=== PATIENT | female | born 1965 | race Caucasian/White ===

== ENCOUNTER → 2017-04-21 | Outpatient (CLI) | payer OTHER | LOC: FIMAGING 08:37 | PROVIDERS: ATTEND Obstetrics & Gynecology | DX: Z12.31 Encounter for screening mammogram for malignant neoplasm of breast (principal); Z80.3 Family history of malignant neoplasm of breast | CPT/HCPCS: G0202 ==

== ENCOUNTER → 2017-05-15 | Outpatient (CLI) | payer OTHER | LOC: FIMAGING 14:14 | PROVIDERS: ATTEND Obstetrics & Gynecology | DX: R92.8 Other abnormal and inconclusive findings on diagnostic imaging of breast (principal) | CPT/HCPCS: G0206 ==

== ENCOUNTER → 2017-06-30 | Outpatient (CLI) | payer OTHER | LOC: CIMAGING 15:56 | PROVIDERS: ATTEND Internal Medicine Endocrinology, Diabetes & Metabolism | DX: E04.2 Nontoxic multinodular goiter (principal) | CPT/HCPCS: 76536-PO ==

== ENCOUNTER → 2017-12-11 | Outpatient (CLI) | payer OTHER | LOC: FIMAGING 14:42 | PROVIDERS: ATTEND Obstetrics & Gynecology | DX: Z03.89 Encounter for observation for other suspected diseases and conditions ruled out (principal) ==

== ENCOUNTER 2018-04-21 16:25 | Emergency (ER) | payer OTHER ==
[2018-04-21 16:41] VITALS: BP 142/112
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
== END 2018-04-21 19:17 | disposition home or self-care (01) ==
DX: S16.1XXA Strain of muscle, fascia and tendon at neck level, initial encounter (principal); K12.0 Recurrent oral aphthae; V49.49XA Driver injured in collision with other motor vehicles in traffic accident, initial encounter; Y92.410 Unspecified street and highway as the place of occurrence of the external cause; Y99.8 Other external cause status; Y93.89 Activity, other specified

== ENCOUNTER 2018-09-15 07:15 | Observation (INO) | payer OTHER ==
--- NOTE | 2018-09-21 12:52 | PDHPUP ---
History & Physical Update H&P update statement: This history and physical update is based on an assessment of the patient which was completed after admission or registration (within 24 hours), but prior to the surgery/procedure. H&P update: H&P reviewed & patient examined
[2018-09-22] MEDS ORDERED: ceFAZolin 2 GM/DEXTROSE 100 ML IV ONE (09:37)
[2018-09-22] MEDS ORDERED: DEXAMETHASONE 4 MG/ML VIAL IVP ONE (09:37)
[2018-09-22] MEDS ORDERED: LIDOCAINE 1% 2 ML INJ ID PRN (09:38)
[2018-09-22] MEDS ORDERED: LR 1,000 ML IV ONE (09:38)
[2018-09-22] MEDS ORDERED: LIDO/EPI 2% **for epidural** 20 ML SDV ONE (10:08)
[2018-09-22] MEDS ORDERED: LIDO/EPI 1% **for epidural** 30 ML SDV ONE (10:09)
[2018-09-22] MEDS ORDERED: MIDAZOLAM 2 MG/2 ML VIAL IVP ONE (10:27)
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
[2018-09-22] MEDS ORDERED: PROPOFOL 200 MG/20 ML VIAL ONE (10:31)
[2018-09-22] MEDS ORDERED: LIDOCAINE 2% 5 ML SDV ONE (10:32)
[2018-09-22] MEDS ORDERED: ROCURONIUM 50 MG/5 ML VIAL ONE (10:32)
[2018-09-22] MEDS ORDERED: ONDANSETRON 4 MG/2 ML VIAL ONE (10:34)
[2018-09-22] MEDS ORDERED: DEXAMETHASONE 4 MG/ML VIAL ONE ×2 (10:35)
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
[2018-09-22] MEDS ORDERED: SCOPOLAMINE HYDROBROMIDE 1 MG/3 DAYS PATCH TD SCH (11:15)
[2018-09-22] MEDS ORDERED: SCOPOLAMINE HYDROBROMIDE 1 MG/3 DAYS PATCH TD ONE (11:15)
[2018-09-22] MEDS ORDERED: LIDOCAINE HCL 160 MG/4 ML LTA KIT TP ONE (11:26)
[2018-09-22] MEDS ORDERED: fentaNYL 100 MCG/2 ML INJ ONE ×2 (11:26→15:11)
[2018-09-22] MEDS ORDERED: PROPOFOL/EMULSION 500 MG/50 ML BOTTLE IV ONE ×3 (11:47→13:31)
[2018-09-22] MEDS ORDERED: HYDROmorphONE/DILAUDID 2 MG/ML INJ ONE (13:07)
[2018-09-22] MEDS ORDERED: ACETAMINOPHEN 160 MG/5 ML UDCUP PO PRN (14:13)
[2018-09-22] MEDS ORDERED: ONDANSETRON 4 MG/2 ML VIAL IVP PRN ×2 (14:13→14:25)
[2018-09-22] MEDS ORDERED: D5W 1/2 NS 1,000 ML IV SCH (14:15)
[2018-09-22] MEDS ORDERED: MEPERIDINE 25 MG/0.5 ML AMP IVP PRN (14:25)
[2018-09-22] MEDS ORDERED: PROMETHAZINE HCL 25 MG/ML INJ IVP PRN (14:25)
[2018-09-22] MEDS ORDERED: LR 500 ML IV PRN (14:25)
[2018-09-22] MEDS ORDERED: ACETAMINOPHEN 500 MG TAB PO PRN (14:25)
[2018-09-22] MEDS ORDERED: NALOXONE HCL 0.4 MG/ML INJ IVP PRN (14:25)
[2018-09-22] MEDS ORDERED: ALBUTEROL 3 ML DEYVIAL IH PRN (14:25)
[2018-09-22] MEDS ORDERED: oxyCODONE IR 5 MG TAB PO PRN (14:25)
[2018-09-22] MEDS ORDERED: HYDROmorphONE/DILAUDID 2 MG/ML INJ IVP PRN (14:25)
--- NOTE | 2018-09-22 14:27 | POSTANESTH ---
Post Anesthetic Evaluation Cardiovascular Status: Normal, Stable Respiratory Status: Normal, Stable Level of Consciousness/Mental Status: Can Participate in Eval, Moderately Sleepy Pain Control: Adequate, Prn Tx Ordered Nausea/Vomiting Control: Adequate, Prn Tx Ordered Complications Possibly Related to Anesthesia: None Noted
[2018-09-22] MEDS: fentaNYL 100 MCG/2 ML INJ IVP PRN ×2 (15:12→15:20)
--- NOTE | 2018-09-22 17:01 | SOAPPROG ---
SOAP Progress Note Assessment/Plan: Assessment: Patient s/p total thyroidectomy by Dr. Mccormick. Doing well. Pain controlled. Neck flat, voice strong. Calcium and PTH WNL. Will recheck in AM. Plans for d/c tomorrow. Pt evaluated by Dr. Mccormick. Plan: 09/22/18 16:59 Objective: Vital Signs Temp Pulse Resp BP Pulse Ox 36.3 C 76 12 147/95 H 98 09/22/18 16:06 09/22/18 16:06 09/22/18 16:06 09/22/18 16:06 09/22/18 16:06 09/21/18 09/22/18 09/23/18 05:59 05:59 05:59 Intake Total 90 Output Total 40 Balance 50 ICD10 Worksheet Patient Problems: Problems Problem Status Onset Thyroid mass Acute - ICD10 Problem Qualifiers (1) Thyroid mass
[2018-09-22] MEDS: HYDROCOD/APAP 7.5/325 IN 15ML UDCUP PO PRN ×2 (19:31→23:34)
[2018-09-22] MEDS ORDERED: MELATONIN 3 MG TAB PO SCH (21:00)
[2018-09-22] MEDS ORDERED: CALCIUM CARB W/VIT D 500 MG TAB PO SCH (21:00)
--- NOTE | 2018-09-22 23:57 | GOP ---
DATE OF OPERATION: 09/22/2018 SURGEON: Festus Mccormick MD ASSOCIATE BROKER: MD Pia Jennings PA-C ANESTHESIA: General endotracheal. PREOPERATIVE DIAGNOSIS: Thyroid carcinoma. POSTOPERATIVE DIAGNOSIS: Thyroid carcinoma. PROCEDURE PERFORMED: The patient was placed in the supine position and orally endotracheally intubat ed. We marked an incision in a relaxed skin tension crease just below her cricoid. We injected 1% l idocaine with 1:100,000 epinephrine. She was sterilely prepped and draped. A 15-blade scalpel used to come through the skin. Subplatysmal flaps were elevated. Once we came to the platysma, the straps were divided in the midline. We began dissecting on the right side, elevat ing the strap muscles away from the gland. We found the middle thyroid vein and used a clip to tie t his off. We freed the superior pole. Using traction-countertraction technique, we rolled the gland medially and identified the right recurrent laryngeal nerve. We did identify the right superior para thyroid gland. We followed the nerve up into the cricothyroid joint, with good visualization of the nerve, and we dissected the gland away from the neck toward the midline. We then came across the midline and dissected the strap muscles away from the left. The gland was so mewhat adherent to the strap muscle on the left side. Again using traction-countertraction technique , we freed up the superior pole and tied this off. We identified the left recurrent laryngeal nerve and kept this under direct visualization as we dissected the gland out of the neck to the midline. W e did identify again another parathyroid on this side. We dissected the gland away from the trachea. The gland was removed and sent to Pathology, with a suture placed on the right lobe. The wound was copiously irrigated and suctioned. Hemostasis was achieved with bipolar. A drain was placed deep t o the strap muscles. The strap muscles and platysma were reapproximated with 3-0 chromic. The drain was sewn into position with 3-0 nylon. The skin was closed with a running 5-[address] essing was applied. She tolerated the procedure well and was in good condition at the end of the pro cedure. FINDINGS: 1. Positive identification of the recurrent laryngeal nerve bilaterally. 2. Identification of parathyroid glands. SPECIMENS: Total thyroid sent for permanent section analysis. ESTIMATED BLOOD LOSS: 25 mL. DESCRIPTION OF PROCEDURE: Total thyroidectomy. /[id number]/MODL
[2018-09-23] MEDS: HYDROCOD/APAP 7.5/325 IN 15ML UDCUP PO PRN (04:15)
[2018-09-23] MEDS ORDERED: LEVOTHYROXINE 75 MCG TAB PO SCH (06:00)
--- NOTE | 2018-09-23 07:48 | SOAPPROG ---
SOAP Progress Note Assessment/Plan: Pt s/p total thyropid. doing well. Mild pain. No hoarseness. No numbness. dressing removed, drain pulled. Plan:pt s/p totoal thyroid. reviewd post op instructions. F/u Friday. Call sooner if any concerns. 09/23/18 07:47 Objective: Vital Signs Temp Pulse Resp BP Pulse Ox 36.6 C 66 16 103/66 96 09/23/18 04:00 09/23/18 04:00 09/23/18 04:00 09/23/18 04:00 09/23/18 04:00 09/22/18 09/23/18 09/24/18 05:59 05:59 05:59 Intake Total 590 Output Total 2070 10 Balance -1480 -10 - Pending Discharge Pending Discharge Within 24 Hours: Yes Pending Discharge Date: 09/24/18 Pending Discharge Time: 11:00 ICD10 Worksheet Patient Problems: Problems Problem Status Onset Thyroid mass Acute
[2018-09-23] MEDS ORDERED: ESTROGENS,CONJUGATED 30 GM CRTUBE VG SCH (08:00)
[2018-09-23 08:43] VITALS: BP 116/65
[2018-09-23] MEDS ORDERED: SENNOSIDES 17.6 MG/10 ML UDL PO SCH (09:00)
[2018-09-23] MEDS ORDERED: CETIRIZINE 10 MG TAB PO SCH (09:00)
[2018-09-25] MEDS ORDERED: PATCH REMOVAL 1 EA PATCH TD SCH (11:13)
[2018-09-30] MEDS ORDERED: OMALIZUMAB SQ SCH (17:00)
== END 2018-09-23 10:25 | disposition home or self-care (01) ==
LOC: EEVIPCON 09-22 09:27 → F1N 09-22 09:27 → F3E 09-22 15:48
PROVIDERS: ADMIT Otolaryngology; ATTEND Otolaryngology
PROC: 0GTK0ZZ Resection of Thyroid Gland, Open Approach (ICD-10-PCS; principal; 2018-09-22 11:00)
DX: C73 Malignant neoplasm of thyroid gland (principal); E06.3 Autoimmune thyroiditis
CPT/HCPCS: 60240; G0378; J0690; J1100; J1170; J2250; J2405; J2704; J3010

== ENCOUNTER → 2018-11-03 | Outpatient (CLI) | payer OTHER ==
[~2018-11-03] MED LIST: GADOBUTROL 10 ML VIAL IVP ONE
== END ==
LOC: FIMAGING 06:45
PROVIDERS: ATTEND Internal Medicine Endocrinology, Diabetes & Metabolism
DX: H53.47 Heteronymous bilateral field defects (principal); K11.8 Other diseases of salivary glands
CPT/HCPCS: A9585

== ENCOUNTER → 2018-12-04 | Outpatient (CLI) | payer OTHER | LOC: FIMAGING 15:17 | PROVIDERS: ATTEND Otolaryngology | DX: D37.030 Neoplasm of uncertain behavior of the parotid salivary glands (principal) ==

== ENCOUNTER → 2018-12-18 | Outpatient (CLI) | payer OTHER ==
[~2018-12-18] MED LIST changes: -GADOBUTROL 10 ML VIAL IVP ONE; +LIDOCAINE 1% 300 MG/30 ML SDV ONE
== END ==
LOC: FIMAGING 10:04
PROVIDERS: ATTEND Otolaryngology
DX: D37.030 Neoplasm of uncertain behavior of the parotid salivary glands (principal); Z53.8 Procedure and treatment not carried out for other reasons